=== PATIENT | male | born 1955 | race Caucasian/White ===

== ENCOUNTER 2025-09-29 05:32 | Inpatient (IN) ==
--- NOTE | 2025-09-16 12:48 | Anesthesiology Consultation ---
Date of Service September 16, 2025 Assessment & Plan (1) Encounter for pre-operative examination: - Infectious disease screening: Per assessment on 09/16/25- No known recent infectious disease contacts or current infectious disease symptoms. - Cardiology visit 10/23/24: "PVCs= resolved; moderate PVC burden on 48 hour holter, pt did not tolerate BB; felt PVC's worse on Norvasc, <1% burden on repeat monitor.. Nuc stress without ishemia with above average capacity 11/2023.. BP elevated but home BP well controlled.. MURPHY- CCS Class II with CP. Bypasses 10 years old; Nuc stress stable without ischemia.. Carotid artery stenosis- Mild R, moderate LICA 05/2024 and 11/2023.." - Awaiting most recent carotid imaging (Dr. Waller). Patient is otherwise acceptable risk for surgery. Chart Review Chart Review: Patient NOT seen in Pre Admission Testing History Surgery Operation Date: 09/29/25 07:30 Proposed Procedures p Robotic assisted Laparoscopic Radical Retropubic Prostatectomy, Possible Open, Possible Pelvic Lymph Node Dissection - Leon Rene MD Height/Weight Height: 5 ft 11 in Weight: 90.718 kg Allergies Allergy/AdvReac Type Severity Reaction Status Date / Time Penicillins Allergy Unknown Unknown Verified 09/16/25 11:14 Medications Home Medications Medication Instructions Recorded Confirmed Last Taken alprazolam 0.5 mg tablet 0.5 mg PO PRN PRN Anxiety 07/27/25 09/16/25 Unknown aspirin 81 mg tablet 81 mg PO HS 07/27/25 09/16/25 Unknown lisinopril 40 mg tablet 40 mg PO HS 07/27/25 09/16/25 Unknown omega-3 acid ethyl esters 1 gram 1 cap PO DAILY 07/27/25 09/16/25 Unknown capsule pantoprazole 40 mg tablet,delayed 40 mg PO DAILY PRN heart burn 07/27/25 09/16/25 Unknown release rosuvastatin 20 mg tablet 20 mg PO HS 07/27/25 09/16/25 Unknown Past Medical History Medical History Anxiety CAD (coronary artery disease) CABG x3 (2011) Carotid artery stenosis GERD (gastroesophageal reflux disease) History of nephrolithiasis HLD (hyperlipidemia) HTN (hypertension) Prostate cancer (08/2025) PVCs (premature ventricular contractions) Follows with Dr. Holley Past Family History Family History Father History of myocardial infarction father of OR at age 70 Past Surgical History Surgical History (Updated 09/16/25 @ 13:05 by Amber Lemus) Hx of CABG (07/21/12) CABG x3 Hx of cardiac cath (2011) CABG x3 Hx of colonoscopy Hx of lithotripsy (07/07/25) + stent placements/removals Hx of prostate biopsy (08/2025) Hx of shoulder surgery (2021) Left shoulder, rotator cuff S/P cystoscopy with ureteral stent placement (05/2025) Social History Smoking Status: Former smoker Do You Dip or Chew Tobacco: No Smoking End Date: early Hx Alcohol Use: Yes alcohol intake frequency: a few times a month Hx Substance Use: No substance use type: does not use Lab Results Anesthesia Preop Results Results Anesthesia Widget: WBC 6.72 K/ul (4.8-10.8) 09/02/25 Hgb 14.9 g/dl (14.0-18.0) 09/02/25 Hct 43.9 % (42.0-52.0) 09/02/25 Plt 156 K/uL (130-400) 09/02/25 Na 139 mmol/L (136-145) 09/02/25 K 4.3 mmol/L (3.5-5.1) 09/02/25 Cl 104 mmol/L (98-107) 09/02/25 CO2 28 mmol/L (21-32) 09/02/25 BUN 13 mg/dl (6-23) 09/02/25 Creat 1.06 mg/dl (0.6-1.4) 09/02/25 Glucose Level 113 mg/dl (70-99(Fasting)) H 09/02/25 Testing Laboratory Results Urine culture 09/02/25: No growth Electrocardiogram Date: 09/02/25 NSR at 66bpm. iRBBB. Chest X-Ray Date: 09/02/25 FINDINGS: Cardiomediastinal silhouettes are within normal limits. Median sternotomy. No pneumothorax, pleural effusion or airspace consolidation. Degenerative changes of the shoulders and spine. IMPRESSION: No acute process Echocardiogram Date: 11/15/23 LVEF 50-55%. Mild AR. Trace TR. Grade I DD. Stress Test Date: 11/15/23 No significant ischemia/infarction. LVEF 70%. 10 METS. 85% MPHR. "The SPECT perfusion images are considered to be within normal limits." Other Testing PET Skull to mid-thigh Date: 09/02/25 IMPRESSION: 1. No PET/CT evidence of metastatic adenopathy 2. No convincing PET/CT evidence of skeletal metastasis. There is a very subtle focus of increased activity within the right fifth rib, but the activity is too low to be considered a definitive metastatic deposit. This does however warrant surveillance on follow-up studies. 3. Intense focus of increased activity within the prostate , consistent with the patient's primary prostate carcinoma.
[2025-09-29] MEDS: LR 15ML/HR IV SCH (06:18)
[2025-09-29] MEDS: HEPARIN SOD 5,000 UNIT/0.5 ML VIAL SC SCH (06:19)
[2025-09-29] MEDS ORDERED: MIDAZOLAM HCL 1 MG/ML 2ML VIAL ONE (06:27)
[2025-09-29] MEDS ORDERED: PROPOFOL IV EMULSION 10 MG/ML 20 ML VIAL IV ONE (06:27)
[2025-09-29] MEDS ORDERED: ROCURONIUM BROMIDE 10 MG/ML 5 ML VIAL IV ONE ×4 (06:31→10:52)
[2025-09-29] MEDS ORDERED: PHENYLEPHRINE HCL 10 MG/ML VIAL ONE (06:32)
[2025-09-29] MEDS ORDERED: ARTIFICIAL TEARS OP OINT 3.5 GM TUBE ONE (06:35)
[2025-09-29] MEDS ORDERED: ATROPINE SULFATE 0.1 MG/ML 10ML SYR IV PRN (06:56)
[2025-09-29] MEDS ORDERED: ONDANSETRON INJ 2 MG/ML 2 ML VIAL IV PRN (06:56)
[2025-09-29] MEDS ORDERED: DROPERIDOL 5 MG/2 ML VIAL IV PRN (06:56)
--- NOTE | 2025-09-29 07:21 | History & Physical Report ---
Date of Service September 29, 2025 Assessment & Plan (1) Prostate cancer: Plan prostate cancer presenting for definitive treatment via robotic prostatectomy concurrent left inguinal hernia repair with dr. ellis risks, benefits, and expectations reviewed History of Present Illness Primary Care Provider: Zurdo Waller MD prostate cancer presenting for robotic prostatectomy Allergies Allergy/AdvReac Type Severity Reaction Status Date / Time Penicillins Allergy Unknown Unknown Verified 09/29/25 05:52 Home Medications Medication Instructions Recorded Confirmed Type alprazolam 0.5 mg tablet 0.5 mg PO PRN PRN Anxiety 07/27/25 09/29/25 History aspirin 81 mg tablet 81 mg PO HS 07/27/25 09/29/25 History lisinopril 40 mg tablet 40 mg PO HS 07/27/25 09/29/25 History omega-3 acid ethyl esters 1 gram 1 cap PO DAILY 07/27/25 09/29/25 History capsule pantoprazole 40 mg tablet,delayed 40 mg PO DAILY PRN heart burn 07/27/25 09/29/25 History release rosuvastatin 20 mg tablet 20 mg PO HS 07/27/25 09/29/25 History Past Med/Surg History Problem List Reducible left inguinal hernia Encounter for pre-operative examination Prostate cancer Nephrolithiasis Elevated PSA Medical History Anxiety CAD (coronary artery disease) CABG x3 (2011) Carotid artery stenosis GERD (gastroesophageal reflux disease) History of nephrolithiasis HLD (hyperlipidemia) HTN (hypertension) Prostate cancer (08/2025) PVCs (premature ventricular contractions) Follows with Dr. Holley Surgical History Hx of prostate biopsy (08/2025) Hx of colonoscopy Hx of lithotripsy (07/07/25) + stent placements/removals S/P cystoscopy with ureteral stent placement (05/2025) Hx of shoulder surgery (2021) Left shoulder, rotator cuff Hx of cardiac cath (2011) CABG x3 Hx of CABG (07/21/12) CABG x3 Family History (Updated 09/21/25 @ 13:53 by Ivana Farmer RN) Father History of myocardial infarction father of ID at age 70 Sister Cancer Brother Cancer Social History (Updated 09/21/25 @ 13:55 by Ivana Farmer RN) Smoking Status: Former smoker Tobacco Type: Cigarettes and Smokeless Tobacco (Dip or Chew) Age Started Using Tobacco: 22; Age Quit Using Tobacco: 26; packs per day: 0.5; Smoking End Date: early 20's; Second Hand Exposure: No; Do You Dip or Chew Tobacco: No; Tobacco Cessation Education Requested by Patient: No Hx Alcohol Use: Yes Alcohol type: beer and wine Alcohol Intake Frequency: Monthly or Less Hx Substance Use: No Preferred Language: Kiswahili Communication Ability: Effective Air Quality Engineer Required: No Beliefs That Will Affect Care: None marital status: Current Living Situation: Spouse current occupational status: retired Other Information That Helps Us Care for You: No Feels Safe at Home: Yes Safety Concerns: Feels Safe At This Time during the past year weight has: remained stable Assistive Devices: Denture - Upper Assistive Devices Comment: partial Physical Exam Constitutional: well developed and well nourished Neck: neck nontender Respiratory: normal respiratory effort; no respiratory distress and does not use accessory muscles Cardiovascular: Rate/Rhythm: regular rate Vessels: radial pulses present Extremities: no edema Gastrointestinal (Abdomen): Inspection/Auscultation: abdomen normal to inspection Percussion/Palpation: abdomen soft; abdomen nontender and no guarding Musculoskeletal: Head/Neck/Chest: normocephalic and head atraumatic Extremities: extremities normal to inspection Skin: no rashes and no lesions Trauma: no evidence of skin trauma Neurologic: awake; not obtunded Speech / Cognition: normal speech Motor/Sensory: no tremor Psychiatric: Orientation: alert and oriented x 3 Genitourinary: no CVA tenderness Lymphatic: no lymphadenopathy Results & Data Vital Signs (Past 12 Hours) Vital Signs Temp Pulse Resp BP Pulse Ox O2 Del Method 09/29/25 05:55 36.8 C 72 20 160/88 H 96 Room Air
--- NOTE | 2025-09-29 07:27 | History & Physical Bridge Note ---
Date of Service September 29, 2025 History & Physical Bridge Note I have examined the patient, reviewed the History & Physical and in the interval since the performance of the History & Physical I have noted the following changes of clinical significance: no changes noted
[2025-09-29] MEDS: ceFAZolin 3000MG 3,000 MG/72.5 ML BAG IV SCH (07:41)
[2025-09-29] MEDS ORDERED: DEXAMETHASONE SOD INJ 4 MG/ML VIAL ONE ×2 (08:16)
[2025-09-29] MEDS ORDERED: HYDROmorphone INJ 2 MG/ML SYR/VIAL ONE (09:02)
--- NOTE | 2025-09-29 09:28 | Operative Report ---
PG Post Operative Report Pre & Post Diagnosis Operation Date: 09/29/25 07:30 Preop diagnosis: Prostate cancer, left inguinal hernia Postop diagnosis: Prostate cancer, indirect left inguinal hernia I identified the patient and participated in the time-out.: Yes Procedure Operation Date: 09/29/25 07:30 Actual Procedures p Robotic Assisted Laparoscopic Radical Retropubic Prostatectomy, Bilateral Pelvic Lymph Node Dissection - MD chava Schaefer Robotic Laparoscopic Left Inguinal Hernia Repair(Left) - Juan R Laguerre DO, FACS Surgeon Juan R Laguerre DO, FACS Rouge Sifter Mark Salomon PA Estimated Blood Loss 5 Findings Consistent with Post-Op Diagnosis Indirect left inguinal hernia with cord lipoma. ProGrip mesh placed to the left. Cord lipoma sent to pathology for specimen Specimens Left cord lipoma Anesthesia Type General Complications none Disposition Accompanied Patient To Recovery: No Disposition: Recovery Room Indications 70-year-old male with prostate cancer and symptomatic left inguinal hernia, plan for robotic left inguinal hernia repair, possible right during robotic prostatectomy by urology. The risks of the procedure were discussed, all qu estions were answered, and the patient agreed to proceed with surgery as planned. Description of Procedure The patient was properly identified, consented, and taken to the operating room where he was placed in the supine position. General endotracheal anesthesia was induced. SCDs and a safety belt were placed. A barboza catheter was placed. Preoperative antibiotics were administered. The patient's groins and abdomen were prepped and draped in the standard sterile fashion. Surgical timeout was performed and all parties were in agreement that this was the correct patient and procedure to be performed and we continued as planned. Access to the abdomen was gained by urology. Please see their portion of the dictation for these details. A small indirect inguinal hernia was identified on the left, and there is no evidence of an inguinal hernia on the right. The patient was placed in the Trendelenburg position. The robot was docked, and the camera and instruments were inserted. Dr. Rene performed portion of his posterior dissection. He then turned the surgery over to nc for performance of the inguinal hernia repair. The peritoneum was incised approximately 6 cm above the defect on the left, starting at the medial umbilical ligament and working laterally. The peritoneal flap was raised. Dissection began laterally at the anterior superior iliac spine. Darren's ligament was then dissected medially. The cord structures were circumferentially dissected. A small indirect inguinal hernia defect was identified. The peritoneum was reduced and the cord was skeletonized. A large cord lipoma was dissected away from the cord structures. This was resected, removed at the end of the case and the Endo Catch bag and passed off the table specimen. Progrip mesh was placed on the left and covered the direct, indirect, and femoral spaces. As Dr. Alonzo still had more of the procedure to perform, I tacked the mesh into place at Darren's ligament and laterally with a single 3- 0 Vicryl suture. I then turned the case back over to Dr. Rene. For details regarding his portion of the procedure, please see his dictation. The peritoneal flap, and a peritoneal defect were closed by Dr. Rene. The physician's office manager executive assistant was present and scrubbed for the entirety of the procedure, and was critical in positioning the patient, prepping and draping, retraction and exposure, driving the laparoscope, assistance with exchange of the robotic instruments, closure of the incisions, and placement of the dressings. I attest to the content of the Intraoperative Record and any orders documented therein. Any exceptions are noted below.
[2025-09-29] MEDS ORDERED: SUGAMMADEX SODIUM 200 MG/2 ML VIAL IV ONE (11:04)
[2025-09-29] MEDS: BUPIVACAINE 0.5 % 5 MG/1 ML MPF 30ML VIAL ONE (11:36)
[2025-09-29] MEDS: BUPIVACAINE LIPOSOME 1.3% 266 MG/20 ML VIAL ONE (11:37)
[2025-09-29] MEDS: HYDROmorphone INJ 2 MG/ML SYR/VIAL IV PRN (12:01)
--- NOTE | 2025-09-29 12:07 | Operative Report ---
PG Post Operative Report Pre & Post Diagnosis Operation Date: 09/29/25 07:30 Pre-Op Diagnosis: Malignant Neoplasm Prostate, left inguinal hernia Post-Op Diagnosis: Malignant Neoplasm Prostate, indirect left inguinal hernia I identified the patient and participated in the time-out.: Yes Procedure Operation Date: 09/29/25 07:30 Actual Procedures p Robotic Assisted Laparoscopic Radical Retropubic Prostatectomy, Bilateral Pelvic Lymph Node Dissection(Bilateral) - Leon Rene MD s Robotic Laparoscopic Left Inguinal Hernia Repair(Left) - Juan R Laguerre DO, FACS Surgeon Leon Rene MD Middleware Administrator Mark Salomon PA Estimated Blood Loss 150 Findings Consistent with Post-Op Diagnosis Specimens 1. Periprostatic fat 2. Left pelvic lymph nodes 3. Right pelvic lymph nodes 4. Prostate and seminal vesicles Anesthesia Type General Complications none Disposition Accompanied Patient To Recovery: No Disposition: Recovery Room Description of Procedure The patient was identified in the preoperative holding area, appropriate informed consents were reviewed and completed, and he was transported to the operating suite. Subcutaneous heparin was administered in the pre-operative holding area. Upon arrival in the operating suite, he received appropriate antibiotics and general anesthesia and was positioned supine and prepped in sterile fashion. A Juarez catheter was inserted in the sterile field. A Veress needle was passed per umbilicus with uniform insufflation of the abdomen to 15mmHg. He was placed in 26 degrees of Trendelenburg. A periumbilical incision was then made to a ccommodate a robotic port and entry was made using a visual obturator. Inspection of the abdomen was carried out, and there was no evidence of traumatic entry or injury secondary to the Veress needle. After confirming a clear anterior abdominal wall, ports were subsequently placed in standard robotic prostatectomy fashion without incident. To begin the robotic portion of the case, the left lateral aspect of the sigmoid was mobilized off of the left pelvic side wall to allow the pouch of Mata to be appropriately visualized. I then made an incision in the pouch of Mata, overlying the seminal vesicles. Both SVs as well as the ampullae of the vasa were entirely dissected, with the vasa transected 3cm from the prostate. Dissection posterior to the prostate was completed, splitting Denonvilliers' fascia. At that time Dr. Laguerre entered the case and performed a robotic assisted left inguinal hernia repair. Details of his procedure as discussed in his operative report. He did leave a piece of mesh in place and sutured in 2 locations in the peritoneum was not yet recovering as I needed to mobilize the remainder of the peritoneum to allow completion of the prostatectomy. The medial umbilical ligaments were then controlled with bipolar electrocautery just inferior to the umbilicus. Following cauterization, they were divided utilizing monopolar cautery. A peritoneal incision was carried from this location to the medial aspect of the internal inguinal rings bilaterally with care to avoid opening through the ring. This incision was concluded when the vas deferens was reached. Dissection of the bladder and prostate off of the posterior aspect of the pubic arch was completed allowing full visualization of the prostate. The fat overlying the prostate was removed en bloc and passed off the table as a specimen labeled "periprostatic fat". The endopelvic fascia was cleared during this portion of the procedure, and subsequently opened - first on the right and then the left. The incision through the endopelvic fascia began near the prostate-bladder junction and was carried to the apex with extreme care to preserve all lateral levator musculature as well as the periurethral musculature and sphincter complex. I additionally preserved the puboprostatic ligaments. I then controlled the DVC with a 2-0 V-lock suture in overlapping/figure of 8 fashion. The lymph node dissection was then conducted. External iliac vessels were identified on the pelvic side wall. The packet of fat and lymphatic tissue that resides just under the iliac vein was elevated and off of the vein with a split and roll technique. The packet was dissected laterally to the circumflex vein and distally to the obturator nerve which was preserved. The proximal aspect of the packet was carried towards the bifurcation of the iliac vessels. A combination of monopolar and bipolar cautery were used to assist with control. After completing the dissection on both sides, the packets were collected and passed off of the table as specimens labeled "pelvic lymph nodes". My attention then returned to the prostate, with identification of the bladder neck aided by gentle traction on the Juarez catheter and lateral to medial pressure at the presumed level of the bladder neck with the robotic instruments. An anterior cystotomy was made, the Juarez balloon deflated and the catheter guided through the incision to allow anterior retraction. I attempted to preserve maximal bladder neck musculature as I circumferentially dissected around the bladder neck. After incision through the posterior aspect of the mucosa, the dissection was carried through detrusor muscle until the bilateral ampullae of the vasa were identified. The previously dissected vasa and SVs were brought through the incision and used to elevated the prostate anteriorly. An incision in the lateral prostatic fascia was then made bilaterally to facilitate control of the vascular pedicles and preservation of the nerve bundles. Vasculature running along the posterior/lateral aspect of the prostate was preserved as well as the tissue containing the nerves. The pedicles were then controlled with a series of Weck clips. The apical attachments of the prostate were remaining at that stage. The DVC was divided after control with bipolar cautery over the prostate. Continuous inspection from anterior and lateral views allowed me to closely follow the apical contour of the prostate and maximally preserve urethral length and tissue. The prostate was entirely freed at that point, and collected in an EndoCatch bag before being moved out of the field of vision. Hemostasis was obtained with directed suture ligation of any bleeding vessels along the neurovascular bundles utilizing 3-0 v-Lock suture. Anastomosis of the bladder and urethra was completed utilizing a double armed V-Lock stitch. A new Juarez catheter was inserted and the anastomosis tested with irrigation. There was no evidence of leak. I then utilized 2 separate 2 oh V-Loc sutures as well as a midline clip to try to reattach the bladder to the anterior abdominal wall and reapproximate the peritoneum circumferentially covering the mesh. I did leave a very small opening at the dependent portion of each closure to allow drainage of lymphatic fluid and prevention of lymphoceles. Hemostasis was excellent. The robot was undocked, the specimen extracted through expansion of the maral- umbilical camera port. The fascia was closed with a series of 0-PDS figure of 8 stitches. All skin incisions were closed with 4-0 monocryl. All incisions and muscle layers were anesthesized with a combination of marcaine and Exparel. The case was concluded and the patient taken to the PACU in stable condition. TEDDY Salas assisted from incision to closure in all parts of the case. I attest to the content of the Intraoperative Record and any orders documented therein. Any exceptions are noted below.
[2025-09-29 12:08] LABS: Hematocrit (blood only) 41.5 % (42.0-52.0); Hemoglobin 14.5 g/dL (14.0-18.0); Immature Granulocytes # (auto) 0.06 K/uL (0.01-0.20); Immature Granulocytes % (auto) 0.5 %; Mean Corpuscular Hemoglobin 30.5 pg (25.0-34.0); Mean Corpuscular Volume 87.2 fL (80.0-100.0); Platelet Count 171 K/uL (130-400); RDW Standard Deviation 43.1 fL (36.4-46.3); Red Blood Count 4.76 M/uL (4.70-6.10); White Blood Count 13.26 K/ul (4.8-10.8)
[2025-09-29 12:20] LABS: Blood Urea Nitrogen 15.0 mg/dl (6-23); Calcium 8.9 mg/dl (8.6-10.3); Carbon Dioxide 26.0 mmol/L (21-32); Creatinine Clr Calc Pharmacy 76.6 ml/min; Glucose 176.0 mg/dl (70-99(Fasting))
[2025-09-29] MEDS ORDERED: HYDROmorphone INJ 0.5 MG/0.5 ML SYR IV PRN ×2 (13:01)
[2025-09-29 14:04] LABS: Chloride 105.0 mmol/L (98-107); Potassium 4.3 mmol/L (3.5-5.1)
[2025-09-29 14:15] LABS: Sodium 139.0 mmol/L (136-145)
[2025-09-29 14:16] LABS: Anion Gap 8.0 (3-11)
[2025-09-29] MEDS: ACETAMINOPHEN 500 MG TAB PO PRN (14:22)
[2025-09-29] MEDS: ONDANSETRON INJ 2 MG/ML 2 ML VIAL IV PRN (14:22)
--- NOTE | 2025-09-29 14:23 | Anesthesiology Progress Note ---
Date of Service September 29, 2025 Anesthesia Post Procedure Vital Signs Vital Signs: Temp Pulse Resp BP Pulse Ox O2 Del Method O2 Flow Rate 09/29/25 13:44 36.4 C L 81 16 122/73 97 Nasal Cannula 2 09/29/25 12:45 82 13 115/63 96 Nasal Cannula 2 09/29/25 12:30 36.6 C 80 13 127/69 94 Nasal Cannula 2 09/29/25 12:20 79 13 117/70 95 Nasal Cannula 2 09/29/25 12:10 79 13 126/74 95 Nasal Cannula 2 09/29/25 12:00 82 15 113/64 96 Oxymask 7 09/29/25 11:50 78 16 126/69 95 Oxymask 7 09/29/25 11:41 36.3 C L 78 16 119/71 95 Oxymask 7 09/29/25 05:55 36.8 C 72 20 160/88 H 96 Room Air Pain Intensity Abdomen: Pain Intensity: 5 Transfer of Care Handoff Completed per policy Notes Mental Status: alert / awake / arousable Patient Amnestic to Procedure: Yes Nausea / Vomiting: adequately controlled Pain: adequately controlled Airway Patency, RR, SpO2: stable & adequate BP & HR: stable & adequate Hydration State: stable & adequate Anesthetic Complications: no major complications apparent
[2025-09-29] MEDS: SODIUM CHLORIDE 0.9% 1,000 ML IV SCH (14:28)
[2025-09-29] MEDS: HEPARIN SOD 5,000 UNIT/0.5 ML VIAL SQ SCH (20:09)
[2025-09-29] MEDS: ROSUVASTATIN CALCIUM 20 MG TAB PO SCH (20:09)
[2025-09-29] MEDS: DOCUSATE SODIUM 100 MG CAP PO SCH (20:10)
[2025-09-29] MEDS: ASPIRIN 81 MG ECTAB PO SCH (20:10)
[2025-09-30 06:17] LABS: Hematocrit (blood only) 39.3 % (42.0-52.0); Hemoglobin 13.6 g/dL (14.0-18.0); Immature Granulocytes # (auto) 0.07 K/uL (0.01-0.20); Immature Granulocytes % (auto) 0.5 %; Mean Corpuscular Hemoglobin 30.6 pg (25.0-34.0); Mean Corpuscular Volume 88.5 fL (80.0-100.0); Platelet Count 169 K/uL (130-400); RDW Standard Deviation 44.0 fL (36.4-46.3); Red Blood Count 4.44 M/uL (4.70-6.10); White Blood Count 15.28 K/ul (4.8-10.8)
[2025-09-30 06:37] LABS: Anion Gap 7.0 (3-11); Blood Urea Nitrogen 16.0 mg/dl (6-23); Calcium 8.6 mg/dl (8.6-10.3); Carbon Dioxide 25.0 mmol/L (21-32); Chloride 106.0 mmol/L (98-107); Creatinine Clr Calc Pharmacy 79.7 ml/min; Glucose 128.0 mg/dl (70-99(Fasting)); Potassium 4.6 mmol/L (3.5-5.1); Sodium 138.0 mmol/L (136-145)
[2025-09-30 07:24] VITALS: RESP 16
--- NOTE | 2025-09-30 08:08 | Urology Progress Note ---
Date of Service September 30, 2025 Assessment & Plan (1) Prostate cancer: Plan: Postop day #1 status post robotic prostatectomy and concurrent left inguinal hernia repair Recovery seems very much to be pace Ambulate this morning Discharge home later today Admission and Anticipated Discharge Date Admission Date: September 29, 2025 Subjective Subjectively doing quite well Has been out of bed Pain is tolerable and matching expectations Urine is clear He is relatively anxious to go home, does not feel that he is quite ready to advance his diet he would like to go slowly Physical Exam Physical Exam: Incisions appropriate Urine clear Abdomen soft Results & Data Vital Signs (Past 12 Hours) Vital Signs Temp Pulse Resp BP Pulse Ox O2 Del Method 09/30/25 07:23 36.8 C 68 16 144/85 H 92 Room Air 09/30/25 03:15 36.4 C L 72 113/65 92 Room Air 09/30/25 00:00 37.0 C 72 14 110/64 93 Room Air 09/29/25 23:01 36.9 C 74 16 141/73 H 93 Room Air 09/29/25 20:14 36.9 C 78 16 113/66 93 Room Air 09/29/25 20:10 Room Air PG Care Time/CCT Total # of Minutes Spent Total Time Spent with Patient: Total time spent is greater than 50% in coordination of care (as documented) at patient's floor/unit and/or counseling patient: Coding Level of Care Code None Diagnoses Prostate cancer C61
[2025-09-30 10:59] VITALS: BP 135/73; PULSE 82; TEMP 97.7; O2SAT 91
--- NOTE | 2025-09-30 11:04 | Discharge Summary ---
Date of Service September 30, 2025 Admission HPI Per Admitting Provider prostate cancer presenting for robotic prostatectomy Principal Diagnosis Prostate cancer Discharge Exam Constitutional well developed and well nourished; no acute distress Respiratory normal respiratory effort; no respiratory distress and no labored breathing Gastrointestinal (Abdomen) Inspection/Auscultation: abdomen normal to inspection Musculoskeletal Head/Neck/Chest: normocephalic Skin Incisions appropriate Neurologic moves all extremities and awake Psychiatric Orientation: alert and oriented x 3 Genitourinary Juarez draining clear urine Discharge Data Allergies Allergy/AdvReac Type Severity Reaction Status Date / Time Penicillins Allergy Unknown Unknown Verified 09/29/25 05:52 Procedures Performed Operation Date: 09/29/25 07:30 Actual Procedures p Robotic Assisted Laparoscopic Radical Retropubic Prostatectomy, Bilateral Pelvic Lymph Node Dissection(Bilateral) - Leon Rene MD s Robotic Laparoscopic Left Inguinal Hernia Repair(Left) - Juan R Laguerre DO, FACS Hospital Course (1) Prostate cancer: Postop day #1 status post robotic prostatectomy and concurrent left inguinal hernia repair Recovery seems very much to be pace Ambulate this morning Discharge home later today Total Time Total Time Spent Total Time Spent (In Minutes): 25 Discharge Plan Discharge Items Patient Disposition: Home - Self-Care Reason For Visit: PROSTATE CANCER Discharge Diagnosis: Robotic Laparoscopic Left Inguinal Hernia Repair, Possible Laparoscopic Right Inguinal Hernia Repair Activity: Per Instructions section Lifting: No more than 10 pounds Bathing Comment: Okay to shower after discharge, no tub bath or soaking Sexual Activity: Wait until after follow-up appointment Exercise/Sports: Wait until after follow-up appointment Driving/Machine Use: No driving while taking prescription pain medication Non-emergency contact: Surgeon and Urologist Call non-emergency contact if: you have a fever and your temperature is above 101 Follow-up/Referrals: Juan R Laguerre DO, FACS [Physician] - (please call to schedule follow up in the office in 2 weeks ) Zurdo Waller MD [Primary Care Provider] - Diet: Regular Addtl Attending Provider Instructions: GENERAL SURGERY SPECIAL CARE INSTRUCTIONS: * You have skin glue over your incisions called dermabond. you may shower with this on. It will tend to dissolve and fall off within a couple weeks. Do not pick at the skin glue * You may ice your groin on and off alternating every 20 minutes as needed to help with pain and swelling over the next few days. * You may shower 09/30 . NO soaking in pools or baths for 2 weeks * No lifting greater than 10lbs. No strenuous exercise until cleared by surgeon. Light walking is accepted. * No driving while taking narcotic pain medication; wait at least 3 days * No drinking alcohol while taking narcotic pain medication * May use Ibuprofen/Tylenol over the counter for pain as tolerated. Do not exceed 3grams of Tylenol per 24 hours * Expect some swelling and bruising. * Diet- you may resume your regular diet Call your doctor if: * Temperature above 101 degrees, nausea/vomiting, fever/chills * Pain not relieved by pain medicine ordered * There is increased drainage or redness from any incision * You have any unanswered questions or concerns [phone]. FOLLOW UP VISIT: If not already scheduled, please call the office for a follow-up visit. Office Add Wood Molder Provider Instructions: Please take all medications as prescribed and keep all follow-ups as scheduled. Please call our office at [phone] with any questions, concerns or need to reschedule appointments for any reason. We are happy to assist you. We have sent an antibiotic to your pharmacy of choice. Please begin antibiotic as prescribed the day BEFORE your scheduled voiding trial at [facility]. Please continue antibiotic every 12 hours through the day AFTER your voiding trial. Activity: We recommend having someone with you for the first few days after surgery to help care for you. For the first 2 weeks after surgery, we would like you to get up and walk around your house. However, we recommend limit physical activity that would increase your heart rate. This will allow your body to rest and heal. Take naps if you feel tired. Don't lift anything heavier than 10 pounds, mow the law or ride a bicycle until your follow-up appointment. Please avoid long car rides. Home Care: Unless directed otherwise, drink 6 to 8 glasses of water a day (enough to keep your urine light colored). This will also help keep a healthy flow of urine. We recommend using a stool softener for the first two weeks to avoid constipation. Juarez Catheter or Suprapubic Catheter care: Keep the catheter well secured with either a leg back or leg strap with large bag. Empty your bag when it's about half full. You may notice some blood in the bag. This is normal after surgery and while the catheter is in place. Use mild soap (such as Dove or Dial) and water to wash the catheter and the head of your penis daily, or more frequently if needed. Return to your normal diet, we encourage good protein intake to promote healing. You may shower as normal. Please avoid tub baths or soaking until catheter removed and incisions well healed. Wearing sweat pants while you have the catheter is recommended, they will be more comfortable. Follow-up Your follow up appointments for having your catheter removed, and follow up with your physician should already be scheduled. If you have any questions regarding this, please contact our office. Your final pathology report will be discussed at your physician follow-up appointment. Call [facility] at [phone] right away if you have any of the following: Chest pain or trouble breathing (call 911 or go to the hospital) Fever of 101F or higher, uncontrolled vomiting Heavy bleeding, clots, or bright red blood from the catheter Catheter that falls out or stops draining Foul-smelling discharge from your catheter Redness, swelling, warmth, or increased pain at your incision site Drainage, pus, or bleeding from your incision Pending Studies at Discharge: Yes (pathology) Stand-Alone Forms: My [facility] Medications and DC Order Prescriptions: New ciprofloxacin HCl 500 mg tablet 500 mg PO BID Qty: 6 0RF Rx Instructions: Start 1 day prior to catheter removal oxycodone-acetaminophen [Percocet] 5-325 mg tablet 1 tab PO TID PRN (Reason: pain) Qty: 10 0RF Continued aspirin 81 mg tablet 81 mg PO HS lisinopril 40 mg tablet 40 mg PO HS omega-3 acid ethyl esters 1 gram capsule 1 cap PO DAILY rosuvastatin 20 mg tablet 20 mg PO HS pantoprazole 40 mg tablet,delayed release (DR/EC) 40 mg PO DAILY PRN (Reason: heart burn) alprazolam 0.5 mg tablet 0.5 mg PO PRN PRN (Reason: Anxiety) Discharge Orders: Discharge Order (Routine); Ordered 09/30/25 Ordered By: Marguerite Dunn/Other Patient Handouts: Urinary Catheter Bag Empty Clean, Leg Bag Care Dc Admission Data Admit Date/Time: 09/29/25 11:42 Attending Provider: Leon Rene Admit Provider: Leon Rene Primary Care Provider: Zurdo Waller Other Interventions: Discharge Summary Assessment (RN) Last Done: 09/30/25 11:57 Coding Level of Care Code 25929 IN/OBS DISCH 30 MIN/LESS Diagnoses Prostate cancer C61
== END 2025-09-30 13:00 | disposition home or self-care (01) | DRG 708 ==
LOC: ASU 05:32 → 3E 11:42